=== PATIENT | female | born 1985 | race Two or more races ===

== ENCOUNTER 2021-09-29 10:45 | Outpatient (REF) | payer OTHER, SELFPAY ==
[2021-09-29 10:56] LABS: MANUAL DIFF FLAG NO
[2021-09-29 12:48] LABS: Basophils Percent Auto 0.6 % (0-2); Eosinophils Absolute Auto 0.2 X10*3/uL (0.0-0.4); Eosinophils Percent Auto 2.9 % (0-4); Hematocrit 40.2 % (37.0-47.0); Hemoglobin 12.5 g/dl (12.0-16.0); Imm Gran Abs Auto 0.02 X10*3/uL (0.00-0.03); Imm Gran Pct Auto 0.3 % (0.0-0.4); Lymphocytes Absolute Auto 2.5 X10*3/uL (1.2-4.9); Lymphocytes Percent Auto 34.7 % (20-40); Mean Corpuscular HGB Conc 31.1 g/dl (31.0-35.0); Mean Corpuscular Hemoglobin 26.3 pg (27.0-33.0); Mean Corpuscular Volume 84.6 fL (80.0-98.0); Mean Platelet Volume 9.4 fL (9.4-12.3); Monocytes Absolute Auto 0.4 X10*3/uL (0.1-1.2); Monocytes Percent Auto 5.7 % (2-11); Neutrophils Percent Auto 55.8 % (45-73); Platelet Count 379 X10*3/uL (160-400); Red Blood Count 4.75 X10*6/uL (4.20-5.50); Red Cell Distribution Width 13.2 % (11.0-16.0); White Blood Count 7.2 X10*3/uL (4.8-10.8)
[2021-09-29 13:12] LABS: Alanine Aminotransferase 98 U/L (0-31); Aspartate Amino Transferase 60 U/L (5-31); Estimated Glomerular Filt Rate > 60
== END 2021-09-29 10:46 | disposition home or self-care (01) ==
LOC: HO.LAB 10:45
PROVIDERS: PCP Family Medicine; Visit Provider Family Medicine
DX: R11.0 Nausea (principal); J45.909 Unspecified asthma, uncomplicated
CPT/HCPCS: 36415; 82565; 84450; 84460; 85025

== ENCOUNTER 2021-10-01 16:45 | Outpatient (REF) | payer OTHER, SELFPAY ==
[2021-10-01 17:51] LABS: Alanine Aminotransferase 84 U/L (0-31); Albumin Level 4.4 g/dL (3.5-5.0); Alkaline Phosphatase 86 U/L (39-117); Aspartate Amino Transferase 41 U/L (5-31); Bilirubin Direct < 0.2 mg/dL (0.0-0.5); Bilirubin Total < 0.2 mg/dL (0.0-1.0); Iron 75 mcg/dL (30-160); Percent Iron Saturation 22 % (15-50); Total Iron Binding Capacity 340 mcg/dL (228-428); Total Protein 7.1 g/dL (6.5-8.0); Unsaturated Iron Binding 265 ug/dL
[2021-10-02 04:57] LABS: HBc Num1 0.09 S/CO (0.00-0.79); Hepatitis B Core Antibody Nonreactive (Nonreactive)
== END 2021-10-01 16:46 | disposition home or self-care (01) ==
LOC: HO.LAB 16:45
PROVIDERS: PCP Family Medicine; Visit Provider Family Medicine
DX: R79.89 Other specified abnormal findings of blood chemistry (principal); R11.0 Nausea
CPT/HCPCS: 36415; 80076; 83540; 86704

== ENCOUNTER 2021-11-02 10:02 | Outpatient (REF) | payer OTHER, SELFPAY ==
--- NOTE | ~2021-11-02 | US_ITS ---
EXAMINATION: US ABDOMEN COMPLETE CLINICAL INFORMATION: Elevated LFTs. COMPARISON: Renal ultrasound 07/22/2013. Ultrasound abdomen 01/27/2009. TECHNIQUE: Real-time imaging of the abdominal viscera. FINDINGS: PANCREAS: Visualized portions of the pancreas are unremarkable. The pancreatic tail is obscured by bowel gas. ABDOMINAL AORTA: The proximal, mid, and distal segments are normal in caliber. INFERIOR VENA CAVA: Visualized portions are normal. LIVER: The liver is normal in size. The liver contour is normal. There is diffuse increased liver parenchymal echogenicity, consistent with infiltrative hepatocellular disease. A 1.5 x 1.1 x 1.2 cm hypoechoic lesion in the right hepatic lobe. There is no intrahepatic biliary duct dilatation seen. GALLBLADDER: Normal. The gallbladder is physiologically distended without evidence of stones, sludge, polyps, wall thickening or pericholecystic fluid. COMMON BILE DUCT: Normal in caliber measuring 0.5 cm in diameter. RIGHT KIDNEY: Normal. No hydronephrosis. No renal calculi or focal parenchymal lesions. The kidney measures 9.9 cm in maximum dimension. LEFT KIDNEY: Normal. No hydronephrosis. No renal calculi or focal parenchymal lesions. The kidney measures 10.1 cm in maximum dimension. SPLEEN: Normal. The spleen measures 8.2 cm in maximum dimension. FREE FLUID: None. US/US abdomen complete IMPRESSION: 1.5 cm hypoechoic liver lesion in the right hepatic lobe, incompletely characterized. Recommend further catheterization with dedicated MR liver protocol. Increased hepatic echogenicity which can be seen in the setting of hepatic steatosis or underlying liver disease.
== END 2021-11-02 10:03 | disposition home or self-care (01) ==
LOC: HO.HMGCX 10:02
PROVIDERS: Visit Provider Family Medicine
DX: R11.0 Nausea (principal); R94.5 Abnormal results of liver function studies
CPT/HCPCS: 76700

== ENCOUNTER 2021-11-07 12:26 | Outpatient (REF) | payer OTHER, SELFPAY ==
[2021-11-07 12:39] LABS: MANUAL DIFF FLAG NO
[2021-11-07 13:36] LABS: Basophils Percent Auto 0.5 % (0-2); Eosinophils Absolute Auto 0.2 X10*3/uL (0.0-0.4); Hematocrit 39.3 % (37.0-47.0); Hemoglobin 12.3 g/dl (12.0-16.0); Imm Gran Abs Auto 0.03 X10*3/uL (0.00-0.03); Imm Gran Pct Auto 0.4 % (0.0-0.4); Lymphocytes Absolute Auto 2.2 X10*3/uL (1.2-4.9); Lymphocytes Percent Auto 28.1 % (20-40); Mean Corpuscular HGB Conc 31.3 g/dl (31.0-35.0); Mean Corpuscular Hemoglobin 25.9 pg (27.0-33.0); Mean Corpuscular Volume 82.7 fL (80.0-98.0); Mean Platelet Volume 9.2 fL (9.4-12.3); Monocytes Absolute Auto 0.4 X10*3/uL (0.1-1.2); Monocytes Percent Auto 5.4 % (2-11); Neutrophils Percent Auto 62.6 % (45-73); Platelet Count 391 X10*3/uL (160-400); Red Blood Count 4.75 X10*6/uL (4.20-5.50); Red Cell Distribution Width 12.8 % (11.0-16.0)
[2021-11-07 14:03] LABS: Alanine Aminotransferase 58 U/L (0-31); Aspartate Amino Transferase 30 U/L (5-31)
[2021-11-09 01:14] LABS: EBV-VCA IgM Ab <36.00 U/mL
[2021-11-09 05:13] LABS: Hepatitis A Antibody IgG Nonreactive (Nonreactive); ~Hepatitis A Antibody IgG 0.32 S/CO (0.00-0.99)
[2021-11-09 15:51] LABS: Immunoglobulin G 1169 mg/dL (600-1640)
[2021-11-13 18:37] LABS: FIB-ALT 55 U/L (6-29); FIB-Alpha-2-Macroglobulin 220 mg/dL (106-279); FIB-Apolipoprotein A1 143 mg/dL (101-198); FIB-GGT 29 U/L (3-50); FIB-Haptoglobin 246 mg/dL (43-212); FIB-Total Bilirubin 0.5 mg/dL (0.2-1.2); Liver Fibrosis Score 0.11; Liver Fibrosis Stage F0; Nec Inflam Act Grade A0-A1; Nec Inflam Act Score 0.26
== END 2021-11-07 12:27 | disposition home or self-care (01) ==
LOC: HO.LAB 12:26
PROVIDERS: PCP Family Medicine; Visit Provider Family Medicine
DX: K75.81 Nonalcoholic steatohepatitis (NASH) (principal); R11.2 Nausea with vomiting, unspecified; Z86.19 Personal history of other infectious and parasitic diseases
CPT/HCPCS: 36415; 81596; 82784; 84450; 84460; 85025; 86664; 86665; 86708

== ENCOUNTER 2022-01-30 12:03 | Outpatient (REF) | payer OTHER, SELFPAY ==
[2022-01-30 13:40] LABS: MANUAL DIFF FLAG NO
[2022-01-30 13:45] LABS: Basophils Percent Auto 0.5 % (0-2); Eosinophils Absolute Auto 0.2 X10*3/uL (0.0-0.4); Hematocrit 39.9 % (37.0-47.0); Hemoglobin 12.3 g/dl (12.0-16.0); Imm Gran Abs Auto 0.03 X10*3/uL (0.00-0.03); Imm Gran Pct Auto 0.4 % (0.0-0.4); Lymphocytes Absolute Auto 2.4 X10*3/uL (1.2-4.9); Lymphocytes Percent Auto 32.7 % (20-40); Mean Corpuscular HGB Conc 30.8 g/dl (31.0-35.0); Mean Corpuscular Hemoglobin 25.7 pg (27.0-33.0); Mean Corpuscular Volume 83.5 fL (80.0-98.0); Mean Platelet Volume 9.5 fL (9.4-12.3); Monocytes Absolute Auto 0.4 X10*3/uL (0.1-1.2); Monocytes Percent Auto 5.3 % (2-11); Neutrophils Absolute Auto 4.4 x10*3/uL (2.0-8.3); Neutrophils Percent Auto 59.1 % (45-73); Platelet Count 421 X10*3/uL (160-400); Red Blood Count 4.78 X10*6/uL (4.20-5.50); Red Cell Distribution Width 13.2 % (11.0-16.0); White Blood Count 7.4 X10*3/uL (4.8-10.8)
[2022-01-30 14:10] LABS: Alanine Aminotransferase 44 U/L (0-31); Albumin Level 4.5 g/dL (3.5-5.0); Alkaline Phosphatase 81 U/L (39-117); Aspartate Amino Transferase 29 U/L (5-31); Bilirubin Direct 0.2 mg/dL (0.0-0.5); Bilirubin Total 0.5 mg/dL (0.0-1.0); Total Protein 7.3 g/dL (6.5-8.0)
[2022-01-30 14:36] LABS: Free T4 (Free Thyroxine) 0.92 ng/dL (0.71-1.85); Thyroid Stimulating Hormone 0.74 uIU/mL (0.32-4.0)
== END 2022-01-30 12:04 | disposition home or self-care (01) ==
LOC: HO.HMGCLDS 12:03
PROVIDERS: PCP Family Medicine; Visit Provider Family Medicine
DX: R53.83 Other fatigue (principal); K75.81 Nonalcoholic steatohepatitis (NASH)
CPT/HCPCS: 36415; 80076; 84439; 84443; 85025

== ENCOUNTER 2022-02-27 12:33 | Outpatient (REF) | payer OTHER, SELFPAY ==
[2022-02-27 13:24] LABS: COVID-19 Test Negative (Negative); IDNOW Serial# 16C4AD1C
== END 2022-02-27 12:34 | disposition home or self-care (01) ==
LOC: HO.LAB 12:33
PROVIDERS: Visit Provider Internal Medicine
DX: Z20.822 Contact with and (suspected) exposure to COVID-19 (principal)
CPT/HCPCS: 87635; C9803

== ENCOUNTER 2022-06-13 09:06 | Outpatient (REF) | payer OTHER, SELFPAY ==
--- NOTE | ~2022-06-13 | US_ITS ---
EXAMINATION: US ABDOMEN LIMITED CLINICAL INFORMATION: Liver cyst. COMPARISON: Ultrasound abdomen complete 11/02/2021. Renal ultrasound 07/22/2013. TECHNIQUE: Real-time imaging of the right upper quadrant abdominal viscera. FINDINGS: PANCREAS: Normal. LIVER: The liver is normal in size. The liver contour is normal. The liver shows increased echogenicity. There is a hypoechoic area in the right hepatic lobe measuring 1.8 x 1.2 x 1.7 cm. Previously, it measured 1.5 x 1.1 x 1.2 cm. There is no intrahepatic biliary duct dilatation seen. GALLBLADDER: Normal. The gallbladder is physiologically distended without evidence of stones, sludge, polyps, wall thickening or pericholecystic fluid. COMMON BILE DUCT: Normal in caliber measuring 0.4 cm in diameter. RIGHT KIDNEY: Normal. No hydronephrosis. No renal calculi or focal parenchymal lesions. The kidney measures 10.0 cm in maximum dimension. FREE FLUID: None. US/US abdomen limited IMPRESSION: Subtle hypoechoic area in the right hepatic lobe adjacent to the gallbladder now measuring 1.8 cm. Previously, it measured 1.5 cm. Question adenoma versus hemangioma. Recommend MRI correlation.
== END 2022-06-13 09:07 | disposition home or self-care (01) ==
LOC: HO.HMGCX 09:06
PROVIDERS: PCP Family Medicine; Visit Provider Family Medicine
DX: K76.89 Other specified diseases of liver (principal)
CPT/HCPCS: 76705

== ENCOUNTER 2023-01-20 01:03 | Emergency (ER) | payer OTHER, SELFPAY ==
--- NOTE | ~2023-01-20 | CT_ITS ---
EXAMINATION: CT ABDOMEN AND PELVIS WITH CONTRAST CLINICAL INFORMATION: Abdominal pain after intercourse, suprapubic and left lower quadrant. COMPARISON: None available. TECHNIQUE: Multidetector volumetric images were obtained from the superior aspect of the liver through the pubic symphysis following administration of 60 mL of Omnipaque 350 intravenous contrast. Sagittal and coronal reformatted images were obtained on the technologist's workstation. Oral contrast: No This CT examination was performed using dose optimization techniques as appropriate, variously including the following: *Automated exposure control *Adjustment of mA and/or kV according to patient size (this includes techniques or standardized protocols for targeted exams where dose is matched to indication/reason for exam; i.e. extremities or head) *Use of iterative reconstruction technique DLP: 572 mGy-cm FINDINGS: LUNG BASES: The visualized lung bases are unremarkable. Small hiatal hernia. LIVER, GALLBLADDER, AND BILIARY TREE: The liver is normal in size, shape, and attenuation. No focal hepatic lesion or biliary ductal dilatation is present. The gallbladder is unremarkable with no evidence of radiopaque gallstones, gallbladder wall thickening, or obvious pericholecystic inflammatory changes. PANCREAS: Unremarkable. SPLEEN: Unremarkable. ADRENAL GLANDS: Unremarkable. KIDNEYS AND URETERS: The kidneys are normal in size, shape, and attenuation. No hydronephrosis, hydroureter, or calculi seen. No perinephric stranding. BLADDER: Unremarkable. GASTROINTESTINAL TRACT: Small hiatal hernia. The stomach is otherwise unremarkable. Normal caliber of the small bowel. No small bowel obstruction. There is a large diffuse colonic stool burden. No colonic wall thickening or inflammation. No free air or free fluid. ABDOMINAL WALL: No significant hernia is appreciated. LYMPH NODES: Normal. VASCULAR: Unremarkable. PELVIC VISCERA: Anteverted uterus with IUD in appropriate positioning. No adnexal mass. OSSEOUS STRUCTURES: Unremarkable. CT/CT abdomen pelvis w IV con IMPRESSION: 1. No acute findings in the abdomen or pelvis. No inflammatory changes. 2. Large colonic stool burden. Fleischner guidelines were followed.
[2023-01-20 01:11] VITALS: BP 105/69; PULSE 104; RESP 18; TEMP 36.6; O2SAT 100; BMI 26.7
[2023-01-20 01:26] LABS: MANUAL DIFF FLAG NO
[2023-01-20 01:35] LABS: Basophils Percent Auto 0.5 % (0-2); Eosinophils Percent Auto 0.2 % (0-4); Hemoglobin 12.9 g/dl (12.0-16.0); Imm Gran Abs Auto 0.02 X10*3/uL (0.00-0.03); Imm Gran Pct Auto 0.2 % (0.0-0.4); Lymphocytes Absolute Auto 4.7 X10*3/uL (1.2-4.9); Lymphocytes Percent Auto 57.8 % (20-40); Mean Corpuscular HGB Conc 31.5 g/dl (31.0-35.0); Mean Corpuscular Hemoglobin 25.9 pg (27.0-33.0); Mean Corpuscular Volume 82.3 fL (80.0-98.0); Mean Platelet Volume 8.9 fL (9.4-12.3); Monocytes Absolute Auto 0.3 X10*3/uL (0.1-1.2); Monocytes Percent Auto 3.7 % (2-11); Neutrophils Percent Auto 37.6 % (45-73); Platelet Count 418 X10*3/uL (160-400); Red Blood Count 4.98 X10*6/uL (4.20-5.50); Red Cell Distribution Width 12.8 % (11.0-16.0); White Blood Count 8.1 X10*3/uL (4.8-10.8)
[2023-01-20 01:48] LABS: Alanine Aminotransferase 40 U/L (0-31); Albumin Level 4.6 g/dL (3.5-5.0); Alkaline Phosphatase 95 U/L (39-117); Anion Gap 21 (12-20); Aspartate Amino Transferase 29 U/L (5-31); Bilirubin Direct 0.1 mg/dL (0.0-0.5); Bilirubin Total 0.3 mg/dL (0.0-1.0); Blood Urea Nitrogen 15 mg/dL (9-16); Calcium 9.6 mg/dL (8.4-10.2); Carbon Dioxide 18 mmol/L (22-29); Chloride 107 mmol/L (96-108); Creatinine Clr Calc Pharmacy 76.2; Estimated Glomerular Filt Rate > 60; Glucose Random 156 mg/dL (60-115); Lipase 81 U/L (8-78); Potassium 3.5 mmol/L (3.3-5.1); Sodium 142 mmol/L (135-145); Total Protein 7.6 g/dL (6.5-8.0)
[2023-01-20 01:51] LABS: HCG Quantitative < 2 mIU/mL
--- NOTE | 2023-01-20 03:28 | ED_ITS ---
HPI - Abdominal Pain General Chief Complaint: Nausea/Vomiting/Diarrhea Stated Complaint: n/v, body shakes Time Seen by Provider: 01/20/23 03:13 Source: patient Mode of arrival: ambulatory Limitations: no limitations History of Present Illness HPI narrative: 37-year-old female who presents emergency department for evaluation of lower abdominal pain that occurred after having intercourse. The patient states that she was having sex with her boyfriend. She states that she was not having pain during intercourse but right after intercourse she developed sharp pressure-like pain in her lower abdomen. She states that she had nausea and then developed vomiting. The patient also developed lightheadedness, dizziness, perioral numbness, numbness in her hands and feet. Patient states the pain is constant and was 8/10 at the time of my evaluation. This is her 1st episode of this type of pain. Related Data Previous Rx's Medication Instructions Recorded lorazepam 1 mg tablet (Ativan) 1 mg PO TID PRN anxiety #10 tabs 01/20/23 ondansetron 4 mg disintegrating 4 mg PO Q6-8H PRN nausea and 01/20/23 tablet vomiting #14 tabs Allergies Allergy/AdvReac Type Severity Reaction Status Date / Time walnut Allergy Unknown UNKNOWN Verified 01/20/23 04:10 FRUIT Allergy Unknown SWELLING Uncoded 03/09/20 15:39 Review of Systems Review of Systems Yes all other systems are reviewed and are negative [facility] Past Medical History [facility] Narrative: Past medical history: Depression, anxiety, ?gut issues ?which a improved with supplements. Past surgical history: None social history: She denies tobacco use. She rarely drinks alcohol she denies drug use. Social History Social History Smoked in Last 30 Days: No Use of substances other than those prescribed or required for medical reasons: No Advance Directives: No Advance Directives Information Provided: No Physical Exam ED Vital Signs: Vital Signs - 24 hr 01/20/23 01:11 Temperature 97.9 F Pulse Rate 104 H Respiratory Rate 18 Blood Pressure 105/69 Pulse Oximetry 100 Oxygen Delivery Method Room Air BMI result Body Mass Index 26.7 Vital signs were normal Awake, alert, female patient, pleasant, cooperative, appears to be anxious but not in distress, answers all questions appropriately [facility] Head: Yes normal to inspection, Yes normocephalic and Yes atraumatic Ears: external ears normal General nose exam: Normal external nose present Face and sinus: Yes normal facial exam Mouth: Normal oral and palatal mucosa present Throat: Yes posterior oropharynx normal Eyes General: appearance normal, both eyes and all related structures Pupils: Equal, round and reactive pupils present Neck Neck: Yes normal visual inspection, Yes no lymphadenopathy, Yes trachea midline and Yes supple Chest Chest palpation & inspection: normal inspection of the chest and normal pal pation of entire chest wall Resp Effort & Inspection: normal respiratory effort and able to speak in complete sentences Auscultation: clear to auscultation bilaterally Cardio Rate: regular rate Rhythm: regular rhythm Heart sounds: S1 normal heart sound present, S2 normal heart sound present and no murmurs GI Other: Patient's abdomen is soft, nondistended, she has no active bowel sounds, she has moderate suprapubic and left lower quadrant tenderness, there is no rebound, no voluntary or involuntary guarding General: Yes no CVA tenderness Back/Spine/Pelvis Back: no CVA tenderness Skin General skin exam: no rashes or lesions noted Neuro Cranial nerves: Yes CN's II-XII intact bilaterally and Yes Equal, round and reactive pupils present Cognition (Neuro): normal cognition Motor exam (neuro): 5/5 motor strength present throughout Extrem General: Yes normal to inspection Psych Appearance: grossly normal Speech and movement: Normal speech and movement present Affect: Anxious affect present Attitude: cooperative Medical Decision Making Medical Decision Making [facility] Narrative: 37-year-old female who presents emergency department for evaluation of lower abdominal pain that occurred after having intercourse. Patient developed nausea and vomiting as well. She states she also felt lightheaded, dizzy she had perioral numbness, bilateral upper and lower extremity numbness. Patient's vital signs were normal. Physical examination did reveal tenderness with palpation of her suprapubic and left lower quadrant. I ordered the following evaluation CBC, CMP, lipase, quantitative beta-hCG. I also ordered a CT scan of the abdomen pelvis with IV contrast rule out uterine perforation or other possible causes of her pain. Patient was treated with normal saline x1 L IV, Ativan 1 mg IV, Zofran 4 mg IV and Toradol 15 mg IV Differential Diagnosis Differential Diagnoses: The differential diagnosis associated with the presentation includes The differential diagnosis includes was not limited to uterine perforation, colitis, appendicitis, anxiety, hyperventilation syndrome Admission/Observation Consideration of admission/observation: Escalation of care including admission/observation considered Lab Data [facility] Lab Attestation statement: I reviewed the patient's lab results. My interpretation of the patient's laboratory evaluation is as follows: CBC was normal pain CMP revealed elevated glucose of 156. Low bicarb, 18 lipase elevated 81. Quantitative beta-hCG was negative. 01/20/23 01:22 01/20/23 01:22 Labs: Lab Results 01/20/23 01/20/23 01/20/23 Range/Units 01:22 01:22 01:22 WBC 8.1 (4.8-10.8) X10*3/uL RBC 4.98 (4.20-5.50) X10*6/uL Hgb 12.9 (12.0-16.0) g/dl Hct 41.0 (37.0-47.0) % MCV 82.3 (80.0-98.0) fL MCH 25.9 L (27.0-33.0) pg MCHC 31.5 (31.0-35.0) g/dl RDW 12.8 (11.0-16.0) % Plt Count 418 H (160-400) X10*3/uL MPV 8.9 L (9.4-12.3) fL Immature Gran % (Auto) 0.2 (0.0-0.4) % Neut % (Auto) 37.6 L (45-73) % Lymph % (Auto) 57.8 H (20-40) % [place] % (Auto) 3.7 (2-11) % Eos % (Auto) 0.2 (0-4) % Baso % (Auto) 0.5 (0-2) % Lymph # (Auto) 4.7 (1.2-4.9) X10*3/uL [place] # (Auto) 0.3 (0.1-1.2) X10*3/uL Eos # (Auto) 0.0 (0.0-0.4) X10*3/uL Baso # (Auto) 0.0 (0.0-0.2) X10*3/uL Abs Immat Gran (auto) 0.02 (0.00-0.03) X10*3/uL Absolute Neuts (auto) 3.0 (2.0-8.3) x10*3/uL Absolute Nucleated RBC 0.000 (0.0-0.012) X10*3/uL Nucleated RBC % (auto) 0.0 (0.0-0.2) /100WBC Sodium 142 (135-145) mmol/L Potassium 3.5 (3.3-5.1) mmol/L Chloride 107 (96-108) mmol/L Carbon Dioxide 18 L (22-29) mmol/L Anion Gap 21 H (12-20) BUN 15 (9-16) mg/dL Creatinine 0.91 (0.5-1.4) mg/dL Estim Creat Clear Calc 76.2 Estimated GFR > 60 Random Glucose 156 H (60-115) mg/dL Calcium 9.6 (8.4-10.2) mg/dL Total Bilirubin 0.3 (0.0-1.0) mg/dL Direct Bilirubin 0.1 (0.0-0.5) mg/dL AST 29 (5-31) U/L ALT 40 H (0-31) U/L Alkaline Phosphatase 95 (39-117) U/L Total Protein 7.6 (6.5-8.0) g/dL Albumin 4.6 (3.5-5.0) g/dL Lipase 81 H (8-78) U/L Beta HCG, Quant < 2 mIU/mL Radiology Impression Discussion of test interpretation with radiology: I have reviewed the radiologist's reading. Radiologist Impression: CT abdomen pelvis w IV con IMPRESSION: 1. No acute findings in the abdomen or pelvis. No inflammatory changes. 2. Large colonic stool burden. Fleischner guidelines were followed. Dictated By:Brian Bae MD Independent Historian Clinical information obtained from an independent historian. History obtained from or confirmed by: Other (Significant other) Prescription Management I considered prescription management with: Other (Antiemetics, and anti- anxiolytics) Medications Administered Discontinued Medications Generic Name Dose Route Start Last Admin Trade Name Freq PRN Reason Stop Dose Admin Sodium Chloride 1,000 mls @ 999 mls/hr 01/20/23 03:27 01/20/23 04:11 Ns IV 01/20/23 04:27 999 mls/hr .Q1H1M STA Administration Iohexol 100 ml 01/20/23 04:51 01/20/23 04:52 Iohexol 350 Mg/Ml 100 Ml Infus..Btl IV 01/20/23 04:52 100 ml ONCE ONE Administration Ketorolac Tromethamine 15 mg 01/20/23 03:27 01/20/23 04:10 Ketorolac Tromethamine 15 Mg/Ml Vial IVPUSH 01/20/23 03:28 15 mg ONCE STA Administration Lorazepam 1 mg 01/20/23 03:27 01/20/23 04:11 Lorazepam 2 Mg/Ml Vial IVPUSH 01/20/23 03:28 1 mg STAT STA Administration Ondansetron HCl 4 mg 01/20/23 03:27 01/20/23 04:10 Ondansetron Hcl 4 Mg/2 Ml Vial IVPUSH 01/20/23 03:28 4 mg ONCE ONE Administration Discharge Plan Discharge Clinical Impression: Acute hyperventilation syndrome Abdominal pain Qualifiers: Abdominal location: lower abdomen, unspecified Qualified Code(s): R10.30 - Lower abdominal pain, unspecified Patient Disposition: Home, Self-Care Instructions: Hyperventilation (ED), Abdominal Pain (ED) Additional Instructions: Your blood work was unremarkable. The CT scan of your abdomen pelvis did not reveal a clear cause for your abdominal pain and did not reveal any significant abnormalities which is very reassuring. It is unclear what triggered your abdominal pain but your abdominal pain then triggered hyperventilation syndrome. You were treated here in the emergency department with Toradol (anti- inflammatory medication) Zofran (antinausea medication) and Ativan (anti anxiety medication). Take ibuprofen 200 mg pills, 2 pills every 6 hours as needed for pain or fever. Take Tylenol (acetaminophen) 500 mg pills, 2 pills every 6 hours as needed for pain or fever. Take Ativan 1 mg pills, 1 pill every 6 hours as needed for anxiety. This medication will make you sleepy, do not drive or work while taking this medi cation. This medication can be addicting, if your concerned about addiction you can ask the pharmacist for less medications or do not get the prescription filled. Insert Zofran instruction Follow-up with your doctor in 2 days. Please return to the emergency department if your symptoms get worse or if you develop any symptoms that are concerning to you. Prescriptions: New lorazepam [Ativan] 1 mg tablet 1 mg PO TID PRN (Reason: anxiety) Qty: 10 0RF Rx Instructions: Patient may request partial fill ondansetron 4 mg tablet,disintegrating 4 mg PO Q6-8H PRN (Reason: nausea and vomiting) Qty: 14 0RF
[2023-01-20] MEDS: Ketorolac Tromethamine 15 MG/ML VIAL IVPUSH (04:10)
[2023-01-20] MEDS: ondansetron HCL 4 MG/2 ML VIAL IVPUSH (04:10)
[2023-01-20] MEDS: 0.9 % Sodium Chloride 1,000 ML 999 ML IV (04:11)
[2023-01-20] MEDS: LORazepam 2 MG/ML VIAL 1 MG IVPUSH (04:11)
--- NOTE | 2023-01-20 04:23 | PC.NURSE ---
pt a&o, no sob or chest pain, pt complaining of lower abd pain. 08/30. Medicated per Aug. Will continue monitor.
[2023-01-20] MEDS: iohexoL 350 MG/ML 100 ML INFUS..BTL IV (04:52)
--- NOTE | 2023-01-20 05:05 | PC.NURSE ---
pt back from CT Scan, report feeling better after being medicated. Will continue to monitor. pt denies any pain while voiding 07/02
[2023-01-20 05:17] VITALS: BP 101/46; PULSE 107; RESP 16; TEMP 37.4; O2SAT 99
--- NOTE | 2023-01-20 06:03 | PC.NURSE ---
Reviewed discharge instructions with pt, pt verbalized understanding.
== END 2023-01-20 06:09 | disposition home or self-care (01) ==
PROVIDERS: Emergency Provider Emergency Medicine Emergency Medical Services; PCP Family Medicine
DX: F45.8 Other somatoform disorders (principal); R10.32 Left lower quadrant pain; R11.2 Nausea with vomiting, unspecified
CPT/HCPCS: 36415; 74177; 80048; 80076; 83690; 84702; 85025; 96361; 96374; 96375; 99284; J1885; J2060; J2405; Q9967

== ENCOUNTER 2023-02-18 16:42 | Outpatient (REF) | payer OTHER, SELFPAY ==
[2023-02-18 18:23] LABS: Alanine Aminotransferase 30 U/L (0-31); Aspartate Amino Transferase 25 U/L (5-31)
[2023-02-20 13:33] LABS: Transglutaminase Ab IgG <1.0 U/mL
== END 2023-02-18 16:43 | disposition home or self-care (01) ==
LOC: HO.LAB 16:42
PROVIDERS: PCP Family Medicine; Visit Provider Family Medicine
DX: R10.13 Epigastric pain (principal); R19.7 Diarrhea, unspecified; K75.81 Nonalcoholic steatohepatitis (NASH)
CPT/HCPCS: 36415; 84450; 84460; 86364

== ENCOUNTER 2023-06-09 09:03 | Outpatient (REF) | payer OTHER, SELFPAY ==
--- NOTE | ~2023-06-09 | US_ITS ---
EXAMINATION: US ABDOMEN COMPLETE CLINICAL INFORMATION: Right liver cyst, compare to CT 01/20/2023 and ultrasound. COMPARISON: CT abdomen and pelvis 01/20/2023. Ultrasound abdomen limited 06/13/2022. Ultrasound abdomen complete 11/02/2021. TECHNIQUE: Real-time imaging of the abdominal viscera. FINDINGS: PANCREAS: The pancreas appears unremarkable, without masses or ductal dilatation, with the exception of the tail which is obscured by bowel gas. ABDOMINAL AORTA: The proximal, mid, and distal segments are normal in caliber. INFERIOR VENA CAVA: Visualized portions are normal. LIVER: The liver is normal in size. The liver contour is normal. Parenchymal echogenicity is normal. There is a hypoechoic 1.3 x 1.5 x 1.4 cm mass in the right lobe of the liver (previously 1.8 x 1.2 x 1.7 cm on the 06/13/2022 ultrasound. I believe the mass can be seen on the prior CT scan from 01/20/2023 as well (3:26 and 7:37). Imaging characteristics are somewhat suggestive, but not diagnostic, of a hemangioma. There is no intrahepatic biliary duct dilatation seen. GALLBLADDER: Some debris is present in the gallbladder. The gallbladder is physiologically distended without evidence of stones, polyps, wall thickening or pericholecystic fluid. COMMON BILE DUCT: Normal in caliber measuring 0.4 cm in diameter. RIGHT KIDNEY: No hydronephrosis. No renal calculi or focal parenchymal lesions. The kidney measures 10.6 cm in maximum dimension. LEFT KIDNEY: There is some mild pelvic fullness in the left kidney, but no gross hydronephrosis. No renal calculi or focal parenchymal lesions. The kidney measures 10.4 cm in maximum dimension. SPLEEN: Normal. The spleen measures 8.6 cm in maximum dimension. FREE FLUID: None. US/US abdomen complete IMPRESSION: 1. Benign-appearing liver mass. I believe the mass can be seen on the prior CT scan from 01/20/2023. Most likely diagnosis is a hemangioma, but confirmation is needed and dedicated hepatic pre and postcontrast MRI could be performed. 2. Some debris is present in the gallbladder. 3. Mild fullness of the left renal collecting system without gross hydronephrosis.
== END 2023-06-09 09:04 | disposition home or self-care (01) ==
LOC: HO.HMGCX 09:03
PROVIDERS: PCP Family Medicine; Visit Provider Family Medicine
DX: K75.81 Nonalcoholic steatohepatitis (NASH) (principal); K76.89 Other specified diseases of liver
CPT/HCPCS: 76700

== ENCOUNTER 2025-01-25 10:57 | Emergency (ER) | payer BC, SELFPAY ==
[2025-01-25 11:07] VITALS: BP 116/71; PULSE 102; RESP 16; TEMP 36.2; O2SAT 100; BMI 20.6
--- NOTE | 2025-01-25 11:08 | ED.ABDPAIN ---
HPI - Abdominal Pain General Chief Complaint: Abdominal Pain Stated Complaint: Abd pain Time Seen by Provider: 01/25/25 13:57 Source: patient and RN notes reviewed Mode of arrival: ambulatory Limitations: no limitations History of Present Illness ED Provider: Alfreda Galloway PA-C HPI narrative: This is a 39-year-old female presenting with a 4 week history of intermittent abdominal pain. When not present the pain is as low as a 1 to 2/10 and the pain can increase to 7/10 when present. Pain is localized to the epigastric area sometimes radiating towards the left upper quadrant. Pain is accompanied by mild nausea. The pain and nausea notably resolve right after eating a meal. The patient has a 3-4 year history of intermittent abdominal bloating for which she implements dietary changes such as avoiding gluten and dairy as well as avoiding spicy or fatty foods. The patient notably has a history of H pylori present in her urine a few years prior. Patient endorses that she was treated with amoxicillin for said H pylori. Patient denies any changes in bowel movements, as well as any urinary symptoms. She denies any documented fevers. Endorsing nausea, no vomiting. No bloody or black stool. States she was previously on a PPI but did not like the side effects she would experience. No chest pain or SOB. No other complaints or concerns at this time. MD elicited complaint: abdominal pain Onset (ago): week(s) Pain Consistency: intermittent Quality: cramping Radiation: none Exacerbating factors: eating Relieving factors: nothing Associated symptoms: nausea Related Data Previous Rx's ?Medication ?Instructions ?Recorded lorazepam 1 mg tablet (Ativan) 1 mg PO TID PRN anxiety #10 tabs 01/20/23 ondansetron 4 mg disintegrating 4 mg PO Q6-8H PRN nausea and 01/20/23 tablet vomiting #14 tabs aluminum-mag hydroxide-simethicone 5 ml PO 5XD #100 mL 01/25/25 200 mg-200 mg-20 mg/5 mL oral susp (Maalox Advanced) omeprazole 20 mg capsule,delayed 20 mg PO DAILY #30 caps 01/25/25 release Allergies Allergy/AdvReac Type Severity Reaction Status Date / Time walnut Allergy Unknown UNKNOWN Verified 01/25/25 11:10 FRUIT Allergy Unknown SWELLING Uncoded 03/09/20 15:39 Review of Systems Review of Systems Yes all other systems are reviewed and are negative Constitutional: Denies body ache(s), Denies chills and Denies fever(s) Reports Normal hearing present Cardiovascular: Denies chest pain and Denies dyspnea Respiratory: Denies dyspnea Gastrointestinal: Reports abdominal pain, Denies change in stool character and Reports nausea Genitourinary: Denies urinary incontinence, Denies urinary hesitancy and Denies urinary urgency Musculoskeletal: Reports no additional musculoskeletal complaints and Reports as per HPI Reports Normal hearing present [facility] Social History Social History Smoked in Last 30 Days: No Use of substances other than those prescribed or required for medical reasons: No Advance Directives: No Advance Directives Information Provided: Yes Patient : No Physical Exam ED Vital Signs: Vital Signs - 24 hr 01/25/25 15:58 01/25/25 16:12 Temperature 97.2 F 97.2 F Pulse Rate 76 76 Respiratory Rate 18 18 Blood Pressure 108/65 108/65 Pulse Oximetry 100 100 Oxygen Delivery Method Nasal Cannula Room Air BMI result Body Mass Index 20.6 Const General: cooperative, comfortable and no acute distress Orientation/consciousness: patient oriented x3 Limitations: no limitations HENMT Head: Yes normal to inspection, Yes normocephalic and Yes atraumatic Throat: Yes posterior oropharynx normal Resp Effort & Inspection: normal respiratory effort and able to speak in complete sentences Auscultation: clear to auscultation bilaterally Cardio Rate: regular rate Rhythm: regular rhythm Heart sounds: S1 normal heart sound present and S2 normal heart sound present GI Other: Abd is soft, nontender, nondistended Inspection: Yes normal to inspection Palpation (GI): Soft to palpation, nontender, no guarding and not rigid Auscultation: normoactive bowel sounds Skin General skin exam: no rashes or lesions noted Trauma: no lacerations or abrasions Wounds: no wounds Neuro General: patient oriented x3 Cranial nerves: Yes Normal hearing present Extrem General: Yes normal to inspection Right upper extremity: normal to inspection Left upper extremity: normal to inspection Left lower extremity: normal to inspection Course Course Course Narrative: This is a Rapid Medical Examination (RME) performed by Bella Nguyen PA-C in triage. Full HPI, ROS, assessment and treatment plan per primary provider in the Main ED. 39 yo female with history of depression/anxiety who presents to the ER for evaluation of 4 weeks of daily epigastric pain associated with nausea but no vomiting. Intermittent constipation. Irregular menses. Denies chance of , has IUD. Mild epigastric tenderness on exam, no RUQ tenderness. Plan: labs, UA, Upreg Medical Decision Making Medical Decision Making [facility] Narrative: 39-year-old female presents to the ED with 4 week history of abdominal pain accompanied by nausea. The pain is intermittent and resolves with eating. The pain can be as high as 7/10 and is located in the epigastric area with radiation to the left upper quadrant. On abdominal exam the abdomen is soft, nontender, and without guarding or rigidity. Patient was tested positive for H pylori bacteria in years prior via urine culture. Patient endorses being treated with amoxicillin only. Did not retest afterwards. Due to patient's history of H pylori bacteria, as well as lack of tenderness in any abdominal quadrants and lack of bowel movement changes, imaging is not indicated at this time. There is high suspicion for peptic ulcer disease, and patient should follow-up with GI or their primary care doctor to order an H pylori urea breath test. Pt medicated with GI cocktail in department which provided her with good relief. Advised to trial PPI again, and f./u with GI. She understands and agrees with plan. Stable for d/c. Differential Diagnosis Differential Diagnoses: The differential diagnosis associated with the presentation includes Peptic ulcer disease Gastritis Cholelithiasis Ovarian cyst GERD Lab Data [facility] Lab Attestation statement: I reviewed the patient's lab results. No leukocytosis, stable H&H, ALT slightly above range - nonspecific. No other electrolyte derangements. 01/25/25 11:24 01/25/25 11:24 Labs: Lab Results 01/25/25 01/25/25 01/25/25 Range/Units 11:24 15:55 16:00 WBC 6.5 (4.8-10.8) X10*3/uL RBC 4.70 (4.20-5.50) X10*6/uL Hgb 12.3 (12.0-16.0) g/dl Hct 38.7 (37.0-47.0) % MCV 82.3 (80.0-98.0) fL MCH 26.2 L (27.0-33.0) pg MCHC 31.8 (31.0-35.0) g/dl RDW 12.6 (11.0-16.0) % Plt Count 333 (160-400) X10*3/uL MPV 8.8 L (9.4-12.3) fL Immature Gran % (Auto) 0.3 (0.0-0.4) % Neut % (Auto) 57.5 (45-73) % Lymph % (Auto) 33.9 (20-40) % Hendricks % (Auto) 5.2 (2-11) % Eos % (Auto) 2.3 (0-4) % Baso % (Auto) 0.8 (0-2) % Lymph # (Auto) 2.2 (1.2-4.9) X10*3/uL Hendricks # (Auto) 0.3 (0.1-1.2) X10*3/uL Eos # (Auto) 0.2 (0.0-0.4) X10*3/uL Baso # (Auto) 0.1 (0.0-0.2) X10*3/uL Abs Immat Gran (auto) 0.02 (0.00-0.03) X10*3/uL Absolute Neuts (auto) 3.8 (2.0-8.3) x10*3/uL Absolute Nucleated RBC 0.000 (0.0-0.012) X10*3/uL Nucleated RBC % (auto) 0.0 (0.0-0.2) /100WBC Sodium 140 (135-145) mmol/L Potassium 3.9 (3.3-5.1) mmol/L Chloride 110 H (96-108) mmol/L Carbon Dioxide 25 (22-29) mmol/L Anion Gap 9 L (12-20) BUN 13 (9-16) mg/dL Creatinine 0.61 (0.5-1.4) mg/dL Estim Creat Clear Calc 107.4 Estimated GFR > 60 Random Glucose 106 (60-115) mg/dL Calcium 9.2 (8.4-10.2) mg/dL Magnesium 2.0 (1.6-2.6) mg/dL Total Bilirubin 0.3 (0.0-1.0) mg/dL Direct Bilirubin 0.1 (0.0-0.5) mg/dL AST 28 (5-31) U/L ALT 35 H (0-31) U/L Alkaline Phosphatase 80 (39-117) U/L Total Protein 6.9 (6.5-8.0) g/dL Albumin 4.4 (3.5-5.0) g/dL Lipase 22 (8-78) U/L Beta HCG, Quant < 2 mIU/mL Urine Color Yellow Urine Appearance Clear Urine pH 5.5 (5.0-9.0) Ur Specific Ellamore 1.010 (1.005-1.025) Urine Protein Negative (Neg-Trace) mg/dL Urine Glucose (UA) Negative (Negative) mg/dL Urine Ketones Trace (Negative) mg/dL Urine Blood Negative (Negative) Urine Nitrite Negative (Negative) Ur Leukocyte Esterase Negative (Negative) Urine Test NEGATIVE (NEGATIVE) Medications Administered Discontinued Medications Generic Name Dose Route Start Last Admin Trade Name Onealq PRN Reason Stop Dose Admin Al Hydroxide/Mg Hydroxide 30 ml 01/25/25 14:42 01/25/25 14:49 Magnesium Hydrox/Alum Hydrox 30 Ml Oral.Susp PO 01/25/25 14:43 30 ml ONCE ONE Administration Lidocaine HCl 15 ml 01/25/25 14:42 01/25/25 14:49 Lidocaine Hcl Viscous 2 % 15 Ml Solution MUCOUS MEM 01/25/25 14:43 15 ml ONCE ONE Administration Discharge Plan Discharge Clinical Impression: Abdominal pain Patient Disposition: Home, Self-Care Instructions: Abdominal Pain (ED) Additional Instructions: You were seen in the emergency department due to abdominal pain. Your symptoms are concerning for a possible ulcer, you need to have appropriate follow-up with either your primary care physician or a GI specialist. Call tomorrow to make an appointment. I believe that you should be repeat tested for H pylori. They can do this outpatient. I am also prescribing some medications to help with your symptoms. Prilosec, also known as omeprazole, can help prevent symptoms. Maalox can help with symptomatic relief. Take as needed. If any new or worsening symptoms occur including but not limited to worsening abdominal pain, chest pain, shortness of breath, please seek emergent care. Prescriptions: New alum-mag hydroxide-simeth [Maalox Advanced] 200-200-20 mg/5 mL suspension 5 ml PO 5XD Qty: 100 0RF Rx Instructions: administer between meals and at bedtime omeprazole 20 mg capsule,delayed release(DR/EC) 20 mg PO DAILY Qty: 30 0RF No Action lorazepam [Ativan] 1 mg tablet 1 mg PO TID PRN (Reason: anxiety) Qty: 10 0RF Rx Instructions: Patient may request partial fill ondansetron 4 mg tablet,disintegrating 4 mg PO Q6-8H PRN (Reason: nausea and vomiting) Qty: 14 0RF Referrals: [facility] [place] [facility] [Provider Group, Gastroenterology] Stand Alone Forms: Work/School Release Interventions: ED Discharge Assessment Last Done: 01/25/25 16:12 Discharge Date/Time: 01/25/25 16:12 Print Language: Zimbabwean
[2025-01-25 11:28] LABS: MANUAL DIFF FLAG NO
[2025-01-25 11:31] LABS: Hematocrit 38.7 % (37.0-47.0); Hemoglobin 12.3 g/dl (12.0-16.0); Imm Gran Abs Auto 0.02 X10*3/uL (0.00-0.03); Imm Gran Pct Auto 0.3 % (0.0-0.4); Lymphocytes Absolute Auto 2.2 X10*3/uL (1.2-4.9); Mean Corpuscular HGB Conc 31.8 g/dl (31.0-35.0); Mean Corpuscular Hemoglobin 26.2 pg (27.0-33.0); Mean Corpuscular Volume 82.3 fL (80.0-98.0); NRBC Abs Auto 0.000 X10*3/uL (0.0-0.012); NRBC Pct Auto 0.0 /100WBC (0.0-0.2); Platelet Count 333 X10*3/uL (160-400); Red Blood Count 4.70 X10*6/uL (4.20-5.50); White Blood Count 6.5 X10*3/uL (4.8-10.8)
[2025-01-25 11:50] LABS: Alanine Aminotransferase 35 U/L (0-31); Albumin Level 4.4 g/dL (3.5-5.0); Alkaline Phosphatase 80 U/L (39-117); Anion Gap 9 (12-20); Aspartate Amino Transferase 28 U/L (5-31); Blood Urea Nitrogen 13 mg/dL (9-16); Calcium 9.2 mg/dL (8.4-10.2); Carbon Dioxide 25 mmol/L (22-29); Chloride 110 mmol/L (96-108); Creatinine Clr Calc Pharmacy 107.4; Estimated Glomerular Filt Rate > 60; Lipase 22 U/L (8-78); Magnesium 2.0 mg/dL (1.6-2.6); Potassium 3.9 mmol/L (3.3-5.1); Sodium 140 mmol/L (135-145); Total Protein 6.9 g/dL (6.5-8.0)
[2025-01-25] MEDS: Lidocaine HCl Viscous 2 % 15 ML SOLUTION MUCOUS MEM (14:49)
[2025-01-25] MEDS: Magnesium Hydrox/Alum Hydrox 30 ML ORAL.SUSP PO (14:49)
--- OUTSIDE RECORDS SUMMARY | 2025-01-25 14:59 | XMS_ITS | Patient Health Record ---
Author Organization [employer] Address [address] [place], [place] [id number] Support Name Relationship Address Phone Sukhi Marinelli Emergency Contact [address] [place] [address] Chacha Gilliam Guarantor Unknown [phone] Allergies Allergen (clinical drug ingredient) Drug/Non Drug Allergy documented on EMR Reaction Allergy Type Onset Date Status cats, dogs,rabbit hair,feathers (uncoded) Unknown Allergy Active some grasses,dust so me trees (uncoded) Unknown Allergy Active Reason For Referral No Information Medications Medication SIG (Take, Route, Frequency, Duration) Notes Start Date End Date Status Liletta inserted 07/2018 Acti ve Effexor Active Venlafaxine HCl Acti ve Breo Ellipta Active Enterogenic Concentrate Active Vitamin D Not-Taking Similase Active flovent HFA Not-Taki ng Liletta (52 MG) 18.6 MCG/DAY as directed Intrauterine 11/27/2023 Active Wellbutrin Not-Takin g ZyrTEC Active Trelegy Ellipta Acti ve Social History Sex Assigned At : Social History Observation Description Sex Assigned At Female Plan Of Treatment No Information Insurance Providers Payer Name Payer Address Payer Phone Subscriber Number Group Number Insured Name Patient Relationship to Insured Coverage Start Date Coverage End Date [facility] [address] [place], [place] [id number] Chacha Gilliam Self - patient is the insured Medical (General) History Medical History History ICD Code asthma - mild intermittent occ BV and yeast infections depression - in therapy Surgical History Surgery Date(Month/Year) Hospitalization History Reason Date(Month/Year) mononeucleosis 2008
[2025-01-25 15:58] VITALS: BP 108/65; PULSE 76; RESP 18; TEMP 36.2; O2SAT 100
[2025-01-25 16:10] LABS: Appearance Urine Clear; Glucose Urine UA Negative (Negative); PH 5.5 (5.0-9.0); Specific Gravity - Urine 1.010 (1.005-1.025)
[2025-01-25 16:11] LABS: UPreg QC Valid YES
[2025-01-25 16:12] VITALS: BP 108/65; PULSE 76; RESP 18; TEMP 36.2; O2SAT 100
== END 2025-01-25 16:12 | disposition home or self-care (01) ==
PROVIDERS: Physician Assistant; Physician Assistant Medical; Emergency Provider Emergency Medicine; PCP Internal Medicine
DX: R10.9 Unspecified abdominal pain (principal); R11.0 Nausea; Z79.899 Other long term (current) drug therapy
CPT/HCPCS: 36415; 80048; 80076; 81003; 81025; 83690; 83735; 84702; 85025; 99283; 99284

== ENCOUNTER 2025-04-15 08:29 | Outpatient (AMB) | payer BC, SELFPAY ==
--- NOTE | 2025-04-15 08:09 | A.OFFPC_ITS ---
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 Required: No Accompanied by: Self / Same As Patient Allergies walnut Allergy (Unknown, Verified 04/15/25 08:09) UNKNOWN fluticasone furoate (From Arnuity Ellipta) Adverse Reaction (Intermediate, Verified 04/15/25 08:13) jittery famotidine Adverse Reaction (Mild, Verified 04/15/25 08:13) bloating duloxetine (From Cymbalta) Adverse Reaction (Verified 04/15/25 08:12) Constipation FRUIT Allergy (Unknown, Uncoded 04/15/25 08:13) SWELLING Medication List - Last Reconciled 04/15/25 by Jolene Harden MD albuterol sulfate 90 mcg/actuation 2 puffs inhalation Q4H PRN cetirizine (Zyrtec) 10 mg PO DAILY PRN ketotifen fumarate 0.025%(0.035%) 1 drp ophthalmic (eye) BID venlafaxine ER 75 mg PO QPM venlafaxine ER mg PO Tobacco use date assessed: 04/15/25 Dental Screening Dental Screen Date: 04/15/25 Did you have a dental visit in the last 12 months?: Yes Did you have a dental problem in the last 6 months where you did not have access to dental care?: No Was dental information given to patient?: Patient has dentist HPI HPI Comments History of Present Illness Details History of Present Illness The patient is a 39-year-old female presenting to [facility] care with GERD symptoms. Last visit with prior PCP was in November 2024. Gastroesophageal Reflux Disease (GERD): ER visit a few months prior. History of GERD with left upper mid-abdominal pain. Increased discomfort occurs when fasting or under stress. Pain alleviated by dietary modifications. No coffee-induced pain. Avoids NSAIDs due to potential gastric irritation. Asthma- on albuterol Allergic rhinitis-stable, used to see shrimp header Dr. Hawkins who is no longer at practice Depression- on venlafaxine Care Team Sekou Landers-psychiatry Sherin Stevenson- therapist Security Coordinator- used to go to 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 - Resides in [place]. - Recently and uses an IUD for c ontraception. - Avoids alcohol due to GERD exacerbatio n. - Modifies diet to manage GERD, avoiding gluten and lactose, consumes oat and coconut milk. - Reports a sedentary job with little ti me for breaks, affects water intake and bowel regularity. Family History: - Maternal aunt had colon cancer. - Paternal grandmother had diabetes. - Paternal grandfather had alcoholism-re lated liver disease. - Family history of lymphoma, rheumatoid arthritis, and depression. Diagnostic Results: - Labs: Lipase test normal; slightly romaine vated liver numbers in a prior test. Review of Systems - Gastrointestinal: Reports upper abdomi nal pain, worsens with fasting and stress. Denies black or bloody stools. - Respiratory: Denies wheezing, except w ith allergies. No recent infections. - Psychological: Reports depression, man aged with medication. Associated anxiety at times. - Allergies/Immunology: Reports medicati on use for seasonal allergies, manages with Zyrtec and ketotifen. Physical Exam - General- Well appearing, no acute dist ress. -Respiratory- Lungs clear to auscultatio n bilaterally. - Cardiovascular- Normal heart sounds, n o murmurs. - Gastrointestinal- Bowel sounds present , mild tenderness in the left upper quadrant noted. - Extremities: no edema noted Assessment and Plan 1. Gastroesophageal Reflux Disease (GERD ) - H. pylori stool test ordered. - Pantoprazole trial (40 mg daily after stool test). - Gastroenterology referral for further work-up after stool study. 2. Asthma-continue current regimen 3. Allergic rhinitis- continue current r egimen, referral to new shrimp header 4. Depression/anxiety- continue current regimen 5. Abdominal bloating- trial of low FODM APS diet Discussion Notes I reviewed the patient's GERD symptoms and discussed the potential causes and management strategies. We agreed on initiating an H. pylori stool test to investigate any bacterial causes of her symptoms. I explained the benefits of beginning pantoprazole therapy after the stool test and emphasized the importance of adhering to dietary changes and stress management strategies. We discussed the referral to gastroenterology for further evaluation, including a possible upper endoscopy, which I expect will help us understand the root cause of her symptoms more comprehensively. [facility] Medical History (Updated 04/15/25 @ 09:35 by Jolene Harden MD) IUD (intrauterine device) in place Vitamin D deficiency Allergic rhinitis Depression Hepatic hemangioma Asthma GERD (gastroesophageal reflux disease) Surgical History (Updated 04/15/25 @ 09:37 by Jolene Harden MD) S/P ASA advanced surface ablation photorefractive keratectomy Family History (Updated 04/15/25 @ 09:36 by Jolene Harden MD) Paternal Grandfather Alcoholic liver disease Paternal Grandmother Diabetes Maternal Aunt Colon cancer Other Bipolar depression Fatty liver Lymphoma Rheumatoid arthritis Social History Housing: House Patient Tobacco Use Status: Never used Tobacco e-Cigarette/Vaping Use: Never Used service: No Current occupational status: employed Current occupation: control panel builder Questionnaire AUDIT C Alcohol Use Questionnaire (AUDIT-C) 1. How often do you have a drink containing alcohol?: Never 3. How often do you have six or more drinks on one occasion?: Never Total Score: 0 Physical exam (Primary Care) Vital Signs: Last Vital Signs Temp 98.1 F 04/15/25 08:32 Pulse 68 04/15/25 08:32 Resp 16 04/15/25 08:32 BP 98/64 04/15/25 08:32 Pulse Ox 98 04/15/25 08:32 Oxygen Delivery Method Room Air 04/15/25 08:32 BMI result Body Mass Index 24.1 Tobacco/Smoking Status: Tobacco use Status Tobacco use date assessed 04/15/25 04/15/25 08:10 Patient Tobacco Use Status Never used Tobacco 04/15/25 08:39 e-Cigarette/Vaping Use Never Used 04/15/25 08:39 Coding Level of Care Code Est Pt Level 4 (18823) Complex EM visit Add On G2211 Diagnoses Mild intermittent asthma without complication J45.20 Asthma severity: mild Asthma persistence: intermittent Asthma complication type: uncomplicated Allergic rhinitis, unspecified seasonality, unspecified trigger J30.9 Allergic rhinitis trigger: unspecified Allergic rhinitis seasonality: unspecified Assessment & Plan Assessment & Plan (1) Asthma: Code(s): J45.909 - Unspecified asthma, uncomplicated Category: Medical Qualifiers: Asthma severity: mild Asthma persistence: intermittent Asthma complication type: uncomplicated Qualified Code(s): J45.20 - Mild intermittent asthma, uncomplicated (2) Allergic rhinitis: Code(s): J30.9 - Allergic rhinitis, unspecified Category: Medical Qualifiers: Allergic rhinitis trigger: unspecified Allergic rhinitis seasonality: unspecified Qualified Code(s): J30.9 - Allergic rhinitis, unspecified Plan - H. pylori stool study. - Pantoprazole trial post-testing. - Gastroenterology referral for possible endoscopy. - Increase water and fiber intake. Orders: Orders H pylori Ag Stool Today K21.9 - Gastro-esophageal reflux disease without esophagitis, R14.0 - Abdominal distension (gaseous) Comprehensive Met. Panel Today D18.03 - Hemangioma of intra-abdominal structures Referrals [employer] Referral Z01.419 - Encounter for gynecological examination (general) (routine) without abnormal findings Allergy & Immunology Referral J30.9 - Allergic rhinitis, unspecified, J45.909 - Unspecified asthma, uncomplicated Medications: New pantoprazole 40 mg PO DAILY 90 tabs 0RF Discontinued ondansetron Discontinued Reason: Patient Completed Course 4 mg PO Q6-8H PRN 14 tabs 0RF nausea and vomiting alum-mag hydroxide-simeth 200-200-20 mg/5 mL (Maalox Advanced) administer between meals and at bedtime Discontinued Reason: Patient Completed Course 5 mL PO 5XD 100 mL 0RF omeprazole Discontinued Reason: Patient Completed Course 20 mg PO DAILY 30 caps 0RF Patient Instructions: - Complete the H. pylori stool test as instructed by next week. - Begin pantoprazole 40 mg daily as advised after test completion. - Avoid foods that worsen GERD symptoms, such as dairy and gluten. - Drink more water to help with constipation; consider more fiber in your diet. - Keep stress levels down; manage occupational changes carefully. - Follow up with gastroenterology as scheduled; inform me if you don't hear back within two weeks. - Contact the clinic if you experience any new or worsening symptoms.
[2025-04-15 08:32] VITALS: BP 98/64; PULSE 68; RESP 16; TEMP 36.7; O2SAT 98; BMI 24.1
== END 2025-04-15 09:37 | disposition home or self-care (01) ==
LOC: HO.HMCHD 08:30
PROVIDERS: PCP Internal Medicine; Visit Provider Internal Medicine
DX: J45.20 Mild intermittent asthma, uncomplicated (principal); J30.9 Allergic rhinitis, unspecified

== ENCOUNTER 2025-04-15 09:44 | Outpatient (REF) | payer BC, SELFPAY ==
--- OUTSIDE RECORDS SUMMARY | 2025-04-15 10:51 | XMS_ITS | Patient Health Record ---
Author Organization [facility] Address [address] [place] [address] Support Name Relationship Address Phone Sukhi Marinelli Emergency Contact [address] [place], [place] [id number] Chacha Gilliam Guarantor Unknown [phone] Allergies Allergen (clinical drug ingredient) Drug/Non Drug Allergy documented on EMR Reaction Allergy Type Onset Date Status Information temporarily unavailable cats, dogs,rabbit hair,feathers (uncoded) Unknown Allergy Active Information temporarily unavailable some grasses,dust some trees (uncoded) Unknown Allergy Active Reason For Referral No Information Medications Medication SIG (Take, Route, Frequency, Duration) Notes Start Date End Date Status Liletta inserted 07/2018 Acti ve Effexor Active Venlafaxine HCl Acti ve Breo Ellipta Active Enterogenic Concentrate Active Vitamin D Not-Taking /P RN Similase Active flovent HFA Not-Taki ng/P RN Moraima (52 MG) 18.6 MCG/DAY Intrauterine Device as directed Intrauterine 11/27/2023 Active Wellbutrin Not-Takin g/P DEEDEE ZyrTEC Active Trelegy Ellipta Acti ve Social History Sex Assigned At : Social History Observation Description Sex Assigned At Female Social History HIV Risk Assessment Social Info Question Answer Notes Additional Questions Is an HIV Risk Asse ssment being conducted? No Reproductive Life Plan: Social Info Question Answer Notes Reproductive Life Plan: Do you want to have chil dren? No, I don't want to have children How sure are you that you will be able to use your control method without any problems? Very sure People's plans change. Is it possible you or your partner could ever decide to become ? No Human Trafficking: Social Info Question Answer Notes Human Trafficking Experienced: No PrEP for HIV: Social Info Question Answer Notes PrEP for HIV Is the client intere sted in beginning/continuing PrEP for HIV? No Sexual History: Social Info Question Answer Notes Sexual History: Sexual History Reviewed: Partner s, Practices, Protection/Past STIs Currently sexually active? Yes Sexually active with: Men Number of male partners 1 Your sexual activities include: oral intercourse, vaginal intercourse Date of last unprotected intercourse: 01/11/2024 Number of partners in past 3 months: 1 Number of partners in past year: 1 Does your partner(s) currently have any STIs? No Counseling Provided: Social Info Question Answer Notes Counseling Provided Please indicate the length of time, in minutes, that counseling was provided. 7 Counseling Was Provided By: leandro Drugs/Alcohol: Social Info Question Answer Notes Drug/Alcohol Use Do you or have you used drugs? No Do you or have you used alcohol? Yes, currently Food Access: Social Info Question Answer Notes Food Access The Client's current access to food is Secure Food Access Relationships: Social Info Question Answer Notes Relationships Has the client experienced any of the following: Client has never experienced harmful relationships DO NOT USE - Travel Plans: Social Info Question Answer Notes Travel Plans DO NOT USE - Has cli ent traveled to any Zika affected areas? Yes DO NOT USE - Has partner traveled to any Zika af fected areas? Yes DO NOT USE - Is client planning to travel to any Zika affected areas? No DO NOT USE - Is partner planning to travel to an y Zika affected areas? No Housing Social Info Question Answer Notes Housing The client's current living situation is: stable housing Plan Of Treatment No Information Insurance Providers Payer Name Payer Address Payer Phone Subscriber Number Group Number Insured Name Patient Relationship to Insured Coverage Start Date Coverage End Date [facility] [address] [place] [address] [id number] Chacha Gilliam Self - patient is the insured Medical (General) History Medical History History ICD Code asthma - mild intermittent occ BV and yeast infections depression - in therapy Surgical History Surgery Date(Month/Year) Hospitalization History Reason Date(Month/Year) mononeucleosis 2008
--- OUTSIDE RECORDS SUMMARY | 2025-04-15 10:52 | XMS_ITS | Patient Health Record ---
Author Organization [facility] [place] Address [address] [address] Care Team Providers Care Alignment Technician Name Role Phone Rell GUILLORY, Darnell Primary Care Provider Unavailab Michela Elizalde Unavailable [phone] Allergies No Known Allergies Reason For Referral No Information Medications Medication SIG (Take, Route, Frequency, Duration) Notes Start Date End Date Status buPROPion HCl ER (Smoking Det) 150 MG 1 tablet in the morning Orally Once a day; Duration: 30 day(s) Not-Taking Trelegy Ellipta 100-62.5-25 MCG/INH 1 puff Inhalation Once a day Not-Taking EpiPen Active flovent HFA Active Albuterol Not-Taking ZyrTEC Allergy 10 MG 1 tablet Orally Onc e a day; Duration: 30 day(s) Active Venlafaxine HCl 75 MG 1 tablet with food Orally Once a day Active Social History Tobacco Use: Social History Observation Description Date Details (start date - stop date) Never Smoker NA - NA Tobacco Use/Smoking Question Answer Notes Are you a: nonsmoker Additional Findings: Tobacco Non-User Current no n-smoker Alcohol Screen Question Answer Notes Did you have a drink contain ing alcohol in the past year? Yes How often did you have a dri nk containing alcohol in the past year? 2 to 4 times a month (2 points) How often did you have 6 or more drinks on one occasion in the past year? Monthly (2 points) Points 4 Interpretation Positive Tobacco use other than smoking: Question Answer Notes Are you an other tobacco user? No Problems Problem Type SNOMED Code ICD Code Onset Dates Problem Status W/U Status Risk Notes Problem Information temporarily unavailable Plantar wart (B07.0) Active confirmed Plan Of Treatment Pending Test Test Name Order Date X ray : Foot, right 3V 08/23/2020 Insurance Providers Payer Name Payer Address Payer Phone Subscriber Number Group Number Insured Name Patient Relationship to Insured Coverage Start Date Coverage End Date [facility] [address] [place] [address] [id number] Chacha Gilliam Self - patient is the insured Medical (General) History Medical History History ICD Code Anxiety asthma Depression Chicken pox Surgical History Surgery Date(Month/Year)
[2025-04-15 12:10] LABS: Alanine Aminotransferase 48 U/L (0-31); Albumin Level 4.7 g/dL (3.5-5.0); Alkaline Phosphatase 76 U/L (39-117); Anion Gap 8 (12-20); Aspartate Amino Transferase 38 U/L (5-31); Blood Urea Nitrogen 11 mg/dL (9-16); Calcium 9.0 mg/dL (8.4-10.2); Carbon Dioxide 24 mmol/L (22-29); Chloride 110 mmol/L (96-108); Estimated Glomerular Filt Rate > 60; Potassium 4.3 mmol/L (3.3-5.1); Sodium 138 mmol/L (135-145); Total Protein 7.4 g/dL (6.5-8.0)
== END 2025-04-15 09:45 | disposition home or self-care (01) ==
LOC: HO.10HDL 09:44
PROVIDERS: Visit Provider Internal Medicine
DX: D18.03 Hemangioma of intra-abdominal structures (principal)
CPT/HCPCS: 36415; 80053

== ENCOUNTER 2025-04-19 12:11 | Outpatient (REF) | payer BC, SELFPAY ==
--- OUTSIDE RECORDS SUMMARY | 2025-04-19 15:31 | XMS_ITS | Patient Health Record ---
Author Organization [facility] Address [address] [place] [address] Support Name Relationship Address Phone Sukhi Marinelli Emergency Contact [address] [place], [place] [id number] Chacha Gilliam Guarantor Unknown [phone] Allergies Allergen (clinical drug ingredient) Drug/Non Drug [...] directed Intrauterine 11/27/2023 Active Wellbutrin Not-Takin g/P RN ZyrTEC Active Trelegy Ellipta Acti ve Social [...] Insured Coverage Start Date Coverage End Date [facility] [address] [place] [address] [id number] Chacha Gilliam Self - patient is the insured Medical (General) History Medical History History ICD Code asthma - mild intermittent occ BV and yeast infections depression - in therapy Surgical History Surgery Date(Month/Year) Hospitalization History Reason Date(Month/Year) mononeucleosis 2008
--- OUTSIDE RECORDS SUMMARY | 2025-04-19 15:31 | XMS_ITS | Patient Health Record ---
[facility] [place] Address [address] [place] [address] Care Team Providers Care Framing Mechanic Name Role Phone Rell GUILLORY, Darnell Primary Care Provider Unavailab Michela Elizalde Unavailable [phone] Allergies No Known Allergies Reason For Referral [...] Problem Status W/U Status Risk Notes Problem Plantar wart (35344900) Plantar wart (B07.0) Active confirmed Plan Of Treatment Pending Test Test Name Order Date X ray : Foot, right 3V 08/23/2020 Insurance Providers Payer Name Payer Address Payer Phone Subscriber Number Group Number Insured Name Patient Relationship to Insured Coverage Start Date Coverage End Date [facility] [address] [facility] [place] [address] [id number] Chacha Gilliam Self - patient is the insured Medical (General) History Medical History History ICD Code Anxiety asthma Depression Chicken pox Surgical History Surgery Date(Month/Year)
[2025-04-20 08:16] LABS: Hepatitis A Antibody IgM 0.16 Index (0-0.79); ~Hepatitis A Antibody IgM Nonreactive (Nonreactive)
[2025-04-20 08:48] LABS: HBS Num1 180.72 mIU/mL (0-7.99); HBc Num1 0.07 S/CO (0.00-0.79); HBsAGNum1 0.30 S/CO (0.00-0.99); Hepatitis B Surface Antigen Negative (Negative); ~HepC Num1 0.07 S/CO (0.00-0.79); ~Hepatitis B Surface Antibody REACTIVE (Nonreactive); ~Hepatitis C Antibody Nonreactive (Nonreactive)
== END 2025-04-19 12:12 | disposition home or self-care (01) ==
LOC: HO.10HDL 12:11
PROVIDERS: Visit Provider Internal Medicine
DX: K21.9 Gastro-esophageal reflux disease without esophagitis (principal); R14.0 Abdominal distension (gaseous); R74.01 Elevation of levels of liver transaminase levels; Z01.84 Encounter for antibody response examination
CPT/HCPCS: 86704; 86706; 86709; 86803; 87338; 87340

== ENCOUNTER 2025-04-28 12:59 | Outpatient (REF) | payer BC, SELFPAY ==
[2025-04-28 14:20] LABS: Appearance Urine Clear; Glucose Urine UA Negative (Negative); PH 6.5 (5.0-9.0); Specific Gravity - Urine 1.015 (1.005-1.025); UMIC TRIGGER UA YES
--- OUTSIDE RECORDS SUMMARY | 2025-04-28 15:55 | XMS_ITS | Patient Health Record ---
Author Organization [facility] Address [address] [place] [address] Support Name Relationship Address Phone Sukhi Marinelli Emergency Contact [address] [place], [place] [id number] Chacha Gilliam Guarantor Unknown [phone] Allergies Allergen (clinical drug ingredient) Drug/Non Drug [...] Insured Coverage Start Date Coverage End Date [facility] [address] [place] [address] [id number] Chacha Gilliam Self - patient is the insured Medical (General) History Medical History History ICD Code asthma - mild intermittent occ BV and yeast infections depression - in therapy Surgical History Surgery Date(Month/Year) Hospitalization History Reason Date(Month/Year) mononeucleosis 2008
== END 2025-04-28 13:00 | disposition home or self-care (01) ==
LOC: HO.10HDLNP 12:59
PROVIDERS: Visit Provider Internal Medicine
DX: R39.9 Unspecified symptoms and signs involving the genitourinary system (principal)
CPT/HCPCS: 81001; 81003; 87086; 87088; 87186